=== PATIENT | female | born 1940 | race Caucasian/White ===

== ENCOUNTER 2020-12-22 12:42 | Emergency (ER) | payer MEDICARE ==
[~2020-12-22] VITALS: Ht 190.5 cm; Wt 115.5 kg
[2020-12-22] MEDS ORDERED: NORVASC10 M1 PO (14:44)
[2020-12-22] MEDS ORDERED: JANUVIA100 MG PO (14:45)
[2020-12-22] MEDS ORDERED: LEVOTHYROXIN50 MC1 PO (14:45)
[2020-12-22] MEDS ORDERED: BENAZEPRIL40 M1 PO (14:45)
[2020-12-22] MEDS ORDERED: MELOXICAM7.5 MG PO (14:46)
[2020-12-22] MEDS ORDERED: OXYBUTYNIN CHLO10 MG PO (14:47)
[2020-12-22] MEDS ORDERED: CRESTOR10 MG PO (14:47)
[2020-12-22] MEDS ORDERED: CARVEDILOL6.25 MG PO (14:48)
[2020-12-22] MEDS ORDERED: TOUJEO MAX300 UNIT/M SI (14:48)
[2020-12-22 14:50] LABS: HEMATOCRIT 44.5 % (37.0-47.0); HEMOGLOBIN 14.3 g/dl (12.0-16.0); IMMATURE GRANULOCYTES 0.2 % (0.0-5.0); MEAN CELL VOLUME 94.3 fL CALC (80.0-100.0); MEAN CORPUSCULAR HGB 30.3 pG CALC (26.0-32.0); MEAN CORPUSCULAR HGB CONC 32.1 g/dL CAL (32.0-36.0); NEUT# 7.75 thou/uL (2.00-7.15); RED BLOOD COUNT 4.72 mill/uL (4.20-5.60); RED CELL DISTRI WIDTH 13.3 % (11.5-15.5)
[2020-12-22 14:55] LABS: URINE BILIRUBIN - DIPSTICK NEGATIVE (NEGATIVE); URINE BLOOD DIPSTICK NEGATIVE (NEGATIVE); URINE COLOR YELLOW; URINE GLUCOSE - DIPSTICK NEGATIVE (NEGATIVE); URINE KETONE NEGATIVE (NEGATIVE); URINE LEUK ESTERASE NEGATIVE (NEGATIVE); URINE PROTEIN - DIPSTICK NEGATIVE (NEG-TRACE); URINE UROBILINOGEN - DIPSTICK 0.2 E.U./dL (0.2)
[2020-12-22 14:56] LABS: URINE NITRITE - DIPSTICK POSITIVE (Negative)
[2020-12-22 14:58] LABS: URINE SQUAMOUS EPITHELIAL CELL FEW EPI/hpf (0-FEW)
[2020-12-22 14:59] LABS: URINE BACTERIA MANY hpf
[2020-12-22 15:11] LABS: ALBUMIN 4.2 g/dL (3.2-5.0); ALKALINE PHOSPHATASE 200 u/l (38-126); ANION GAP 12 (6-22 (CALC)); BILIRUBIN, TOTAL 1.3 mg/dL (0.0-1.4); BUN 28 mg/dL (8-23); BUN/CREATININE RATIO 31 (12-20 (CALC)); CARBON DIOXIDE 29 mmol/l (22-30); CHLORIDE 104 mmol/l (95-108); CREATININE 0.9 mg/dL (0.5-1.0); GFR > 60 ML/MIN (>=60 (CALC)); GFR FOR AFR.AMER. > 60 ML/MIN (>=60 (CALC)); POTASSIUM 4.4 mmol/l (3.5-5.1); SGOT/AST 33 u/l (9-36); SODIUM 140 mmol/l (137-146); TOTAL PROTEIN 7.7 g/dL (6.3-8.2)
[2020-12-22] MEDS ORDERED: KEFLEX500 MG PO (15:54)
[2020-12-22 16:39] VITALS: BP 147/81
== END 2020-12-22 16:40 | disposition home or self-care (01) ==
LOC: ED 12:42
DX: E11.649 Type 2 diabetes mellitus with hypoglycemia without coma (principal); N39.0 Urinary tract infection, site not specified; I12.9 Hypertensive chronic kidney disease with stage 1 through stage 4 chronic kidney disease, or unspecified chronic kidney disease; E11.22 Type 2 diabetes mellitus with diabetic chronic kidney disease; N18.30 Chronic kidney disease, stage 3 unspecified; M06.9 Rheumatoid arthritis, unspecified; B96.20 Unspecified Escherichia coli [E. coli] as the cause of diseases classified elsewhere; Z91.11 Patient's noncompliance with dietary regimen; Z79.4 Long term (current) use of insulin

== ENCOUNTER 2022-04-26 10:09 | Emergency (ER) | payer MEDICARE ==
[~2022-04-26] VITALS: Ht 190.5 cm; Wt 120.0 kg
[~2022-04-26 10:09] MED LIST: BENAZEPRIL40 M1 PO; CARVEDILOL6.25 MG PO; CRESTOR10 MG PO; JANUVIA100 MG PO; KEFLEX500 MG PO; LEVOTHYROXIN50 MC1 PO; MELOXICAM7.5 MG PO; NORVASC10 M1 PO; OXYBUTYNIN CHLO10 MG PO; TOUJEO MAX300 UNIT/M SI
[2022-04-26 10:33] VITALS: BP 125/55
[2022-04-26 10:46] VITALS: BP 116/51
[2022-04-26] MEDS ORDERED: METHOCARBAMOL500 MG PO (14:13)
[2022-04-26] MEDS ORDERED: NAPROXEN500 MG PO (14:13)
[2022-04-26 15:01] VITALS: BP 82/36
[2022-04-26 15:03] VITALS: BP 98/45
[2022-04-26 15:07] VITALS: BP 91/49
[2022-04-26 15:15] VITALS: BP 91/49
== END 2022-04-26 15:24 | disposition home or self-care (01) ==
LOC: ED 10:09
PROC: 2W39X1Z Immobilization of Left Upper Extremity using Splint (ICD-10-PCS; principal; 2022-04-26)
DX: S52.132A Displaced fracture of neck of left radius, initial encounter for closed fracture (principal); M54.50 Low back pain, unspecified; I12.9 Hypertensive chronic kidney disease with stage 1 through stage 4 chronic kidney disease, or unspecified chronic kidney disease; E11.22 Type 2 diabetes mellitus with diabetic chronic kidney disease; N18.30 Chronic kidney disease, stage 3 unspecified; M06.9 Rheumatoid arthritis, unspecified; W01.0XXA Fall on same level from slipping, tripping and stumbling without subsequent striking against object, initial encounter; Y92.009 Unspecified place in unspecified non-institutional (private) residence as the place of occurrence of the external cause; Z79.4 Long term (current) use of insulin